=== PATIENT | male | born 1955 | race Caucasian/White ===

== ENCOUNTER 2017-09-17 18:23 | Emergency (ER) | payer MEDICAID ==
[~2017-09-17] VITALS: Ht 160 cm; Wt 71.7 kg
[~2017-09-17 18:23] MED LIST: ASPI81TA27 PO; CIPR-173 PO
[2017-09-17 19:07] LABS: Basophils # (auto) 0 uL; Basophils % (auto) 0.5 % (0.0-2.0); Eosinophils # (auto) 0.1 uL; Eosinophils % (auto) 0.6 % (0.0-7.0); Hemoglobin 17.2 g/dL (13.5-17.5); Lymphocytes # (auto) 2.1 uL; Lymphocytes % (auto) 23.6 % (10.0-50.0); Mean Corpuscular Hemoglobin 30.8 pg (28.0-32.0); Mean Corpuscular Hgb Conc. 34.4 g/dL (32.0-36.0); Mean Corpuscular Volume 89.5 fL (80.0-100.0); Monocytes # (auto) 0.8 uL; Monocytes % (auto) 8.6 % (0.0-12.0); Neutrophils # (auto) 6.1 uL; Neutrophils % (auto) 66.7 % (37.0-80.0); Nucleated Red Blood Cells % 0.1 %; Platelet Count (auto) 259 10^3/uL (140-450); Red Blood Cells 5.59 10^6/uL (4.5-5.90); Red Cell Distribution Width 13.2 % (11.8-14.3); White Blood Cell 9.1 10^3/uL (4.4-10.8)
[2017-09-17 19:22] LABS: Alanine Aminotransferase 23 U/L (16-61); Albumin 4.5 g/dL (3.4-5.0); Alkaline Phosphatase 80 U/L (45-117); Anion Gap 8 (5-15); Aspartate Aminotransferase 21 U/L (15-37); BUN/Creatinine Ratio 21.5; Bilirubin, Total 0.9 mg/dL (0.2-1.0); Blood Urea Nitrogen 20 mg/dL (7-18); Calcium 9.4 mg/dL (8.5-10.1); Carbon Dioxide 21 mmol/L (21-32); Chloride 106 mmol/L (98-107); GFR African American 107 mL/min; GFR Non-African American 88 mL/min; Glucose 107 mg/dL (74-106); Potassium 4.2 mmol/L (3.5-5.1); Sodium 135 mmol/L (136-145); Total Protein 8.5 g/dL (6.4-8.2)
[2017-09-17] MEDS ORDERED: HEPARIN SODIUM (PORCINE) 5000 UNITS/ML 1ML VIAL IV ONE (21:00)
[2017-09-17] MEDS ORDERED: ATORVASTATIN 20 MG TAB PO ONE (21:00)
[2017-09-17] MEDS ORDERED: METOPROLOL TARTRATE 50 MG TAB PO ONE (21:00)
[2017-09-17 21:26] LABS: Urine Bacteria NONE SEEN /hpf (None Seen); Urine Blood Negative /uL (Negative); Urine Mucus FEW (None Seen); Urine Specific Gravity 1.017 (1.001-1.035); Urine WBC 1 /hpf (0 - 3)
[2017-09-17 21:48] LABS: Alcohol, Urine < 3.0 mg/dL (0-5); Amphetamine Screen, Urine NEGATIVE (NEGATIVE); Barbiturate Scree,Urine NEGATIVE (NEGATIVE); Benzodiazephine Screen, Urine NEGATIVE (NEGATIVE); Cannabinoid Screen, Urine POSITIVE (NEGATIVE); Cocaine Screen, Urine NEGATIVE (NEGATIVE); Opiate Scree,Urine NEGATIVE (NEGATIVE); Phencyclidine Screen, Urine NEGATIVE (NEGATIVE)
[2017-09-18 01:42] VITALS: BP 129/83
== END 2017-09-18 02:01 | disposition home or self-care (01) ==
LOC: EDUNIT# 18:23 → EDBD 18:23 → ER 18:28
DX: R07.9 Chest pain, unspecified (principal); K29.00 Acute gastritis without bleeding; K58.9 Irritable bowel syndrome, unspecified; F12.10 Cannabis abuse, uncomplicated; R11.10 Vomiting, unspecified; Z79.82 Long term (current) use of aspirin
CPT/HCPCS: 36415; 71045; 74176; 80053; 80307; 81001; 82550; 83690; 84484; 85025; 93005